=== PATIENT | female | born 1980 | race Caucasian/White ===

== ENCOUNTER 2018-12-01 12:21 | Emergency (ER) | payer MEDICARE ==
--- NOTE | 2018-12-01 14:53 | EDM.PDOC ---
ED HPI GENERAL MEDICAL PROBLEM - General Chief Complaint: Respiratory Problem Stated Complaint: SEIZURES,LOW BLOOD PRESSURE Time Seen by Provider: 12/01/18 14:51 Source of Information: Reports: Patient History Limitations: Reports: No Limitations - History of Present Illness INITIAL COMMENTS - FREE TEXT/NARRATIVE: Patient comes emergency Department today with complaints of shortness of breath difficulty breathing. Although the initial complaint has seizures listed she denies any seizure activity or concerns of that with me. Patient does report that she's had quite an extensive history of 2 pulmonary embolism as well as one DVT in the right upper forearm. She is supposed to be on the Route toe chronically but has been off for the last year or so. She has been seen multiple times in the last 3-4 months with concerns of shortness of breath and difficulty breathing. She relates that when she goes up a flight of steps she becomes quite short of breath. She has no pain in her chest. She must use a inhaler or nebulizer to resolve the shortness of breath. She also wakes up in the middle the night gasping for air and reaches for her nebulizer which resolves her symptomology. She has had a sleep study where they told her she had some episodes of hypoxia but no apnea per say. This does feel similar to when she's had a pulmonary embolism in the past. She does not regularly go to her primary provider. She is on estrogen for early menopause and aldactone for low potassium. No smoking no recent long stents of travel no leg or calf or thigh pain. Lower Abdomen Pain Score (Numeric/FACES): 6 - Related Data Allergies Allergy/AdvReac Type Severity Reaction Status Date / Time aspirin Allergy Severe Anaphylactic Verified 12/01/18 12:45 Shock latex Allergy Severe Anaphylactic Verified 12/01/18 12:45 Shock onion Allergy Severe Anaphylactic Verified 12/01/18 12:45 Shock Penicillins Allergy Severe Anaphylactic Verified 12/01/18 12:45 Shock pepper (genus Capsicum) Allergy Severe Anaphylactic Verified 12/01/18 12:45 Shock venom-honey bee Allergy Severe Anaphylactic Verified 12/01/18 12:45 Shock venom-wasp Allergy Severe Anaphylactic Verified 12/01/18 12:45 Shock venom-wasp protein Allergy Severe Anaphylactic Verified 12/01/18 12:45 Shock ziprasidone [From Geodon] Allergy Severe Bradycardia Verified 12/01/18 12:45 aripiprazole [From Abilify] Allergy Intermediate Rash Verified 12/01/18 12:45 aspartame Allergy Intermediate Hives Verified 12/01/18 12:45 ciprofloxacin Allergy Intermediate Hives Verified 12/01/18 12:45 clindamycin Allergy Intermediate Hives Verified 12/01/18 12:45 fluconazole [From Diflucan] Allergy Intermediate Hives Verified 12/01/18 12:45 lamotrigine [From Lamictal] Allergy Intermediate Hives Verified 12/01/18 12:45 metoclopramide [From Reglan] Allergy Intermediate Hives Verified 12/01/18 12:45 mushroom Allergy Intermediate Vomiting Verified 12/01/18 12:45 ondansetron [From Zofran] Allergy Intermediate Hives Verified 12/01/18 12:45 milk Allergy Mild Diarrhea Verified 12/01/18 12:45 SEAFOOD Allergy Severe Anaphylactic Uncoded 12/01/18 12:45 Shock SUN Allergy Severe Anaphylactic Uncoded 12/01/18 12:45 Shock OLIVES Allergy Intermediate Vomiting Uncoded 12/01/18 12:45 MEAT AdvReac Intermediate Nausea and Uncoded 12/01/18 12:45 Vomiting Home Meds: Home Meds ALPRAZolam [Xanax] 1 mg PO BID 09/11/18 [History] Albuterol [Proventil HFA] 1 - 2 puff INH ASDIRECTED PRN 09/11/18 [History] Asenapine Maleate [Saphris] 10 mg SL BID 09/11/18 [History] Estradiol [Estrace] 2 mg PO DAILY 09/11/18 [History] Glucagon,Human Recombinant [Glucagon Emergency Kit] 1 mg PO ASDIRECTED PRN 09/11 [History] Levocetirizine Dihydrochloride [Xyzal] 5 mg PO DAILY 09/11/18 [History] Meclizine [Antivert] 25 mg PO TID 09/11/18 [History] QUEtiapine Fumarate [Seroquel Xr] 800 mg PO BEDTIME 09/11/18 [History] Selegiline [Eldepryl] 5 mg PO BID 09/11/18 [History] Spironolactone [Aldactone] 100 mg PO BID 09/11/18 [History] Zolpidem Tartrate [Ambien] 10 mg PO BEDTIME 09/11/18 [History] rOPINIRole [Requip] 0.25 mg PO DAILY 09/11/18 [History] Budesonide [Pulmicort] 0.5 mg IH BID #60 ml 12/01/18 [Rx] Rivaroxaban [Xarelto] 20 mg PO DAILY #30 tablet 12/01/18 [Rx] Past Medical History HEENT History: Reports: Impaired Vision, Other (See Below) Other HEENT History: GLASSES. PHOTOSENSITIVITY. COLOR BLIND RED/GREEN Cardiovascular History: Reports: NC, Other (See Below) Other Cardiovascular History: HX OF TYPE 2 ACUTE MYOCARDIAL INFARCTION. HX OF SVT. HX OF DVT IN RIGHT ARM Respiratory History: Reports: Asthma, PE, SOB, Other (See Below) Other Respiratory History: HYPOXIC NOCTURIA Gastrointestinal History: Reports: Chronic Diarrhea, GERD, Irritable Bowel Syndrome, Other (See Below) Other Gastrointestinal History: GALLBLADDER IN FRONT OF RIB CAGE Genitourinary History: Reports: None NIGHT CLEANER History: Reports: None Musculoskeletal History: Reports: Arthritis, Fibromyalgia, Other (See Below) Other Musculoskeletal History: DJD. LEVOSCOLIOSIS OF T3-4. WEDGE COMPRESSION FX OF FIRST THROACIC VERTEBRA. WEDGE COMPRESSION FX OF SECOND LUMBAR VERTEBRA. CENTRAL STENOSIS OF SPINAL CANAL T12-L1, L1-L2. 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 DISSOCIATIVE IDENTITY DISORDER Endocrine/Metabolic History: Reports: Hypothyroidism, Osteopenia Hematologic History: Reports: Other (See Below) Other Hematologic History: CHRONIC HYPOKALEMIA. 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 LB SYNDROME Immunologic History: Reports: Other (See Below) Other Immunologic History: UNSPECIFIED AUTOIMMUNE DISEASE Oncologic (Cancer) History: Reports: None Dermatologic History: Reports: None, Other (See Below) Other Dermatologic History: ALLERGIC TO SUN - Infectious Disease History Infectious Disease History: Reports: Chicken Pox - Past Surgical History Head Surgeries/Procedures: Reports: None HEENT Surgical History: Reports: Other (See Below) Other HEENT Surgeries/Procedures: NASAL SEPTUM REPAIR 2007 Cardiovascular Surgical History: Reports: Other (See Below) Other Cardiovascular Surgeries/Procedures: ANGIOGRAM Respiratory Surgical History: Reports: None GI Surgical History: Reports: Colonoscopy, EGD, Hernia Repair/Other, Other (See Below) Other GI Surgeries/Procedures: HIATAL HERNIA REPAIR Female Surgical History: Reports: None Endocrine Surgical History: Reports: None Neurological Surgical History: Reports: Laminectomy, Other (See Below) Other Neurological Surgeries/Procedures: NERVE CAUTERIZATION SPINAL Musculoskeletal Surgical History: Reports: Other (See Below) Other Musculoskeletal Surgeries/Procedures:: INTRATHECAL PUMP (MORPHINE) . LUMBAR SPINE FACET JOINT INJUCTION UNDER FLUROSCOPIC GUIDANCE 02/21/18. SPINE CERVICAL DISCECTOMY FUSION ANTERIOR C3-4, C4-5 05/30/18 Social & Family History - Family History Family Medical History: Noncontributory - Tobacco Use Smoking Status *Q: Never Smoker - Caffeine Use Caffeine Use: Reports: Soda - Recreational Drug Use Recreational Drug Use: No ED ROS GENERAL - Review of Systems Review Of Systems: ROS reveals no pertinent complaints other than HPI. ED EXAM, GENERAL - Physical Exam Exam: See Below Free Text/Narrative:: This female has very male dominated features and structures to include height, leg hair facial hair body build and type hand shoulders and arms which all appear to be male traits. I have this concern due to the history of PEs and DVTs and on estrogen therapy which increases the risk for DVTs or clots and would like to discontinue the therapy is for a gender identity issue due to the risk of from this combo. Aldactone is also used in gender reassignment for the side effect of the breast development. Exam Limited By: No Limitations General Appearance: Alert, WD/WN, No Apparent Distress Eye Exam: Bilateral Eye: PERRL Ears: Normal External Exam, Normal TMs Nose: Normal Inspection, Normal Mucosa, No Blood Throat/Mouth: Normal Inspection, Normal Lips, Normal Oropharynx, Normal Voice. No: Normal Teeth (multiple missing teeth and caries throughout the mouth none appear acutely infectious. ) Head: Atraumatic, Normocephalic Neck: Normal Inspection, Supple, Non-Tender, Full Range of Motion. No: Thyromegaly Respiratory/Chest: No Respiratory Distress, No Accessory Muscle Use, Wheezing ( Late expiratory wheezing. ) Cardiovascular: Normal Peripheral Pulses, Regular Rate, Rhythm, No Edema Peripheral Pulses: 2+: Radial (L), Radial (R), Posterior Tibial (L), Posterior Tibial (R), Dorsalis Pedis (L), Dorsalis Pedis (R) GI/Abdominal: Normal Bowel Sounds, Soft, Non-Tender, No Distention (Female) Exam: Deferred Rectal (Female) Exam: Deferred Back Exam: Normal Inspection, Full Range of Motion Extremities: Normal Inspection, Normal Range of Motion, Non-Tender, No Pedal Edema, Normal Capillary Refill Neurological: Alert, Oriented, CN II-XII Intact, No Motor/Sensory Deficits Psychiatric: Normal Affect, Normal Mood Skin Exam: Warm, Dry, Intact, Normal Color, No Rash EKG INTERPRETATION EKG Date: 12/01/18 Time: 15:06 Rhythm: NSR [place]: Normal P-Wave: Present QRS: Normal ST-T: Normal QT: Normal Comparison: NA - No Prior EKG Course - Vital Signs Last Recorded V/S: Last Vital Signs Temp 37.0 C 12/01/18 18:31 Pulse 67 12/01/18 18:31 Resp 20 12/01/18 18:31 BP 107/64 12/01/18 18:31 Pulse Ox 95 12/01/18 18:31 - Orders/Labs/Meds Orders: Active Orders 24 hr Category Date Time Status EKG 12 Lead [EKG Documentation Completion] [RC] URGENT Care 12/01/18 15:01 Active Labs: Laboratory Tests 12/01/18 12/01/18 12/01/18 Range/Units 15:16 15:16 15:16 WBC 7.7 (5.0-10.0) 10^3/uL RBC 4.21 (4.2-5.4) 10^6/uL Hgb 13.5 (12.0-16.0) g/dL Hct 39.6 (37.0-47.0) % MCV 94.1 (80-100) fL MCH 32.1 (27.0-34.0) pg MCHC 34.1 (33.0-35.0) g/dL Plt Count 206 (150-450) 10^3/uL Neut % (Auto) 65.7 (42.2-75.2) % Lymph % (Auto) 23.2 (20.5-50.1) % [place] % (Auto) 10.3 H (2-8) % Eos % (Auto) 0.5 L (1.0-3.0) % Baso % (Auto) 0.3 (0.0-1.0) % D-Dimer, Quantitative < 100 (0-400) ng/mL Sodium 136 (135-145) mmol/L Potassium 3.6 (3.6-5.0) mmol/L Chloride 100 L (101-111) mmol/L Carbon Dioxide 26.0 (21.0-31.0) mmol/L Anion Gap 13.6 BUN 7 (7-18) mg/dL Creatinine 0.8 (0.6-1.3) mg/dL Est Cr Clr Drug Dosing 108.95 mL/min Estimated GFR (MDRD) > 60 BUN/Creatinine Ratio 8.75 Glucose 88 (74-105) mg/dL Calcium 9.0 (8.4-10.2) mg/dl Total Bilirubin 0.6 (0.2-1.0) mg/dL AST 15 (10-42) IU/L ALT 15 (10-60) IU/L Alkaline Phosphatase 47 (42-121) IU/L Troponin I < 0.02 (0.00-0.02) ng/ml B-Natriuretic Peptide 6 (0-100) pg/ml Total Protein 6.8 (6.7-8.2) g/dl Albumin 3.6 (3.2-5.5) g/dl Globulin 3.2 Albumin/Globulin Ratio 1.13 Meds: Medications Discontinued Medications Generic Name Dose Route Start Last Admin Trade Name Freq PRN Reason Stop Dose Admin Iopamidol 100 ml 12/01/18 17:34 Isovue-370 (76%) IVPUSH 12/01/18 17:35 ONETIME ONE Rivaroxaban 20 mg 12/01/18 18:26 12/01/18 18:33 Xarelto PO 12/01/18 18:27 20 mg ONETIME ONE Administration - Radiology Interpretation Free Text/Narrative:: CXR no acute pathology. - Re-Assessments/Exams Free Text/Narrative Re-Assessment/Exam: 12/01/18 Laboratory evaluation on this patient really is rather unremarkable with a negative d-dimer. Not finding any pathology or overt concerns at this time with these chronic complaints other than going on for the past 4 months. Although the patient is supposed to be on Zaroxolyn for the prevention of thrombus. She has not been on this for approximately 1 year. Despite the negative d-dimer and her continued complaints of shortness of breath and her history I would like to do a CT angiogram of the chest to evaluate for pulmonary embolism. After multiple attempts to attempt to get an IV that would allow us to complete a CT angiogram of the chest we were unable to get a IV to complete the study. I think it is rather unlikely that she has a PE at this time as she has a negative d-dimer , troponin no tachycardia or hypoxia. I will place her back on her Zaroxolyn though she is supposed to be on it chronically and if she does have a small PE this will be the treatment for it. She has quite a bit of symptomology that is quite a bit chronic and needs to be followed in the primary care setting. She needs to consider the discontinuation of the estrogen-based therapy due to the risk of clots. If this medication is being used for other purposes other than control of possible early menopause consideration of discontinuation of this medication to prevent further harm is highly recommended at this time. I will also send her home with some budesonide to see if she does not have some type of inflammatory or underlying reactive airway disease. With the concerns of hypoxia during the night in the sleep study that has not led anywhere I think she should see pulmonology. She is comfortable with this plan and she is discharged home. Departure - Departure Time of Disposition: 18:19 Disposition: Home, Self-Care 01 Clinical Impression: History of pulmonary embolism, SOB (shortness of breath) - Discharge Information Prescriptions: Budesonide [Pulmicort] 0.5 mg IH BID #60 ml Rivaroxaban [Xarelto] 20 mg PO DAILY #30 tablet Referrals: Maame Aleman MD [Primary Care Provider] - Forms: ED Department Discharge Additional Instructions: Continue your Xarelto at 20mg a day. RX given. Continue your previous inhalers. Add budesonide inhaler 0.5mg twice a day. RX given. See primary care next few days. Return to the ED if new or worsening Symptoms. - My Orders Last 24 Hours: My Active Orders 12/01/18 15:01 EKG 12 Lead [EKG Documentation Completion] [RC] URGENT - Assessment/Plan Last 24 Hours: My Active Orders 12/01/18 15:01 EKG 12 Lead [EKG Documentation Completion] [RC] URGENT Assessment:: SOB unknown cause ? reactive airway, chronic lung disease or PE unable to evaluate for PE. HX of PE and DVTs placed back on Xarelto Plan: Continue your Xarelto at 20mg a day. RX given. Continue your previous inhalers. Add budesonide inhaler 0.5mg twice a day. RX given. See primary care next few days. Return to the ED if new or worsening Symptoms.
[2018-12-01 15:40] LABS: ANION GAP 13.6; CHLORIDE,CL 100 mmol/L (101-111); SODIUM,NA 136 mmol/L (135-145)
[2018-12-01] MEDS ORDERED: Iopamidol 755 Mg/ML 100 ML Bottle IVPUSH ONE (17:34)
[2018-12-01] MEDS ORDERED: Rivaroxaban 10 MG Tab PO ONE (18:26)
== END 2018-12-01 18:36 | disposition home or self-care (01) ==
LOC: DL.ED 12:21
DX: R06.02 Shortness of breath (principal); I25.2 Old myocardial infarction; Z91.040 Latex allergy status; Z88.8 Allergy status to other drugs, medicaments and biological substances; Z88.0 Allergy status to penicillin; Z91.018 Allergy to other foods; Z91.013 Allergy to seafood; Z79.899 Other long term (current) drug therapy; Z86.711 Personal history of pulmonary embolism
CPT/HCPCS: 36415; 71046; 80053; 83880; 84484; 85025; 85379; 93005; 99284; A9270; Q9967